=== PATIENT | male | born 1995 | race Two or more races ===

== ENCOUNTER 2017-08-17 20:46 | Emergency (ER) | payer OTHER ==
[2017-08-17 20:52] VITALS: BP 115/80; TEMP 99.9; O2SAT 93
--- NOTE | 2017-08-17 21:04 | EDPHY ---
H & P Stated Complaint: infected tooth/fever Time Seen by Provider: 08/17/17 21:04 HPI/ROS: HPI: This is a 21-year-old male who presents with Chief Complaint: Infected tooth and fever Location: Left lower tooth Quality: Infected Duration: 4 days Signs and Symptoms:+ felt warm this afternoon but never took temperature, no difficulty swallowing, no difficulty opening mouth, no difficulty talking, + pain with chewing, no neck stiffness, no jaw swelling Timing: Gradual onset Severity: Moderate Context: Patient has a history of tobacco use and lack of dental care presents with complaints of left lower tooth pain that is constant, moderate, nonradiating in nature. He reports that he went to the dentist today who gave him amoxicillin for which he took his 1st dose prior to arrival in the ER. When he was at the pharmacy picking up his prescription, the pharmacist notified him if he had a fever he should go to the ER for further evaluation. He reports that he walked out of the pharmacy and felt warm and then he became worried so he came to the emergency room. He is asking for pain medications for his lower left tooth pain as he did not receive any at the dentist. He has not tried any [id number] Tylenol or ibuprofen. He has eaten 3 meals today. Modifying Factors: Amoxicillin Comment: ROS: see HPI Constitutional: No fever, no chills, no weight loss Eyes: No blurred vision Respiratory: No shortness of breath, no cough Cardiovascular: No chest pain Gastrointestinal: No nausea, no vomiting, no diarrhea Genitourinary: No dysuria Extremities: No myalgias Neurologic: No weakness, no numbness Skin: No rashes Hematologic: No bruising, no bleeding MEDICAL/SURGICAL/SOCIAL HISTORY: Medical history: Generally healthy. Does not take any regular medications. Surgical history: Denies Social history: Student CONSTITUTIONAL: awake and alert, no obvious distress HEENT: Atraumatic and normocephalic, PERRL, EOMI. Tympanic membranes clear. Oropharynx clear, no cracked or decayed teeth. Mild left mandible jaw swelling ; no erythema/fluctuance appreciated. no exudate and moist pink mucosa. No malocclusion. Airway patent. No lymphadenopathy. No meningismus. Cardiovascular: Normal S1/S2, tachycardia, regular rhythm, without murmur rub or gallop. PULMONARY/CHEST: Symmetrical and nontender. Clear to auscultation bilaterally. Good air movement. No accessory muscle usage. ABDOMEN: Soft, nondistended, nontender, no rebound, no guarding, no peritoneal signs, no masses or organomegaly. No CVAT. EXTREMITIES: 2/2 pulses, no deformities, no clubbing, no cyanosis or edema. NEUROLOGICAL: no focal neuro deficits. GCS 15. SKIN: Warm and dry, no erythema. no rash. Good capillary refill. Source: Patient Exam Limitations: No limitations - Personal History Current Tetanus/Diphtheria Vaccine: Unsure - Medical/Surgical History Hx Asthma: No Hx Chronic Respiratory Disease: No Hx Diabetes: No Hx Cardiac Disease: No Hx Renal Disease: No Hx Cirrhosis: No Hx Alcoholism: No Hx HIV/AIDS: No Hx Splenectomy or Spleen Trauma: No Other PMH: PSHx: denies. PMHx: denies - Social History Smoking Status: Current every day smoker Constitutional: Initial Vital Signs Temperature (C) 37.7 C 08/17/17 20:48 Heart Rate 120 H 08/17/17 20:48 Respiratory Rate 14 08/17/17 20:48 Blood Pressure 115/80 08/17/17 20:48 O2 Sat (%) 93 08/17/17 20:48 O2 Delivery Mode Room Air Allergies/Adverse Reactions: No Known Allergies Allergy (Unverified 08/17/17 20:47) Home Medications: Medication Instructions Recorded AMOXICILLIN 08/17/17 Tramadol HCl/Acetaminophen 1 each PO Q6 PRN #10 tablet 08/17/17 [Ultracet 37.5/325 mg] Medical Decision Making ED Course/Re-evaluation: Given clindamycin, Temple, ibuprofen with moderate relief of pain Mild left lower jaw swelling appreciated. No fluctuance to I and D Patient politely declined dental block. Patient already has a follow-up appointment with dentist in 10 days as well as script for amoxicillin times 10 days Advised to stop smoking, rinse mouth after meals and at bedtime, take all antibiotics as directed, given limited number of Ultracet for severe breakthrough pain. Differential Diagnosis: ED differential diagnosis includes dental cavity, periapical abscess, facial cellulitis. Departure - Departure Disposition: Home, Routine, Self-Care Clinical Impression: Pain, dental, Dental abscess Condition: Good Instructions: Dental Abscess (ED) Additional Instructions: Please take all antibiotics as directed. Stop smoking. Rinse mouth with salt water after every meal and at bedtime. Take ibuprofen or Tylenol as needed for fever or pain. Apply warm compress to left side of jaw to reduce pain and swelling. Take Ultracet every 6 hours as needed for severe/breakthrough pain. Keep your follow-up appointment with dentist as directed. Referrals: [facility],. [Clinic] - As per Instructions Prescriptions: Tramadol HCl/Acetaminophen [Ultracet 37.5/325 mg] 1 each PO Q6 PRN #10 tablet PRN Reason: Pain, Severe
[2017-08-17] MEDS ORDERED: HYDROCODONE/APAP 5/325 TAB PO ONE (21:09)
[2017-08-17] MEDS ORDERED: CLINDAMYCIN 150 MG CAP PO ONE (21:10)
[2017-08-17] MEDS ORDERED: IBUPROFEN 800 MG TAB PO ONE (21:10)
[2017-08-17 21:38] VITALS: PULSE 100; RESP 18
== END 2017-08-17 21:36 | disposition home or self-care (01) ==
DX: K04.7 Periapical abscess without sinus (principal); F17.200 Nicotine dependence, unspecified, uncomplicated

== ENCOUNTER 2017-09-08 12:02 | Inpatient (IN) | payer OTHER ==
--- NOTE | 2017-09-08 12:34 | EDPHY ---
H & P Stated Complaint: M1 - Personal History Current Tetanus Diphtheria and Acellular Pertussis (TDAP): Unsure - Medical/Surgical History Hx Asthma: No Hx Chronic Respiratory Disease: No Hx Diabetes: No Hx Cardiac Disease: No Hx Renal Disease: No Hx Cirrhosis: No Hx Alcoholism: No Hx HIV/AIDS: No Hx Splenectomy or Spleen Trauma: No Other PMH: PSHx: denies. PMHx: denies - Social History Smoking Status: Current every day smoker Time Seen by Provider: 09/08/17 12:17 HPI/ROS: CHIEF COMPLAINT: Suicidal ideation HISTORY OF PRESENT ILLNESS: 21-year-old male arrives via police complaining of suicidal ideation. History of depression, discontinued from Wellbutrin 2 weeks ago and transition to Prozac. He he notes increasing suicidal ideation with plan to jump in front of a vehicle or go to a shooting range and shoot himself. He denies suicide attempt. Denies homicidal ideation. Denies physical complaints of pain or discomfort. Denies hallucination. REVIEW OF SYSTEMS: A ten point review of systems was performed and is negative with the exception of the items mentioned in the HPI PAST MEDICAL & SURGICAL HISTORY: Depression SOCIAL HISTORY:no alcohol or drug use PHYSICAL EXAM (Prior to examination, patient consented to physical exam, hands were washed and my usual and customary physical exam procedures followed) 1) GENERAL: Well-developed, well-nourished, alert and oriented. Appears to be in no acute distress. 2) HEAD: Normocephalic, atraumatic 3) HEENT: Pupils equal, round, reactive to light bilaterally. Sclera anicteric. 4) NECK: Full range of motion, no meningeal signs. 5) LUNGS: Clear auscultation bilaterally, no wheezes, no rhonchi, no retractions. 6) HEART: Regular rate and rhythm, no murmur, no heave, no gallop. 7) ABDOMEN: No guarding, no rebound, no focal tenderness, negative McBurney's, negative Gil's, negative Rovsing's, negative peritoneal sign, 8) MUSCULOSKELETAL: Moving all extremities, no focal areas of tenderness, no obvious trauma. No peripheral edema or discoloration. 9) BACK: No CVA tenderness, no midline vertebral tenderness, no fluctuance, no step-off, no obvious trauma, no visual or palpable abnormality. 10) SKIN: No rash, no petechiae. 11) Psychiatric: Patient is oriented X 3, there is no agitation. DIFFERENTIAL DIAGNOSIS: [ in no particular order including but not limited to depression, suicidal ideation, homicidal ideation (Ariel Beckett) Constitutional: Initial Vital Signs Temperature (C) 37 C 09/08/17 12:10 Heart Rate 105 H 09/08/17 12:10 Respiratory Rate 12 09/08/17 12:10 Blood Pressure 134/63 H 09/08/17 12:10 O2 Sat (%) 95 09/08/17 12:10 O2 Delivery Mode Room Air Allergies/Adverse Reactions: No Known Allergies Allergy (Unverified 08/17/17 20:47) Home Medications: Medication Instructions Recorded FLUoxetine [Prozac 20 MG (*)] 20 mg PO DAILY 09/08/17 Medical Decision Making ED Course/Re-evaluation: 12:34 p.m.:Care of patient under supervision of secondary supervising physician Dr Momin . Will obtain diagnostic studies and contact mental health provider. 5:00 p.m.: Care turned over to Dr. Rudy Tiwari, awaiting psychiatric evaluation. (Ariel Beckett) The patient was evaluated and managed by the physician phlebotomist lab assistant. I have reviewed this chart and I agree with the findings and plan of care as documented , as indicated by my signature. I am the secondary supervising physician. ( Rachael Momin) Other Provider: The patient has been accepted at [address] [place] [address] Tadeo. Transfer paperwork completed. (Rudy Tiwari) - Data Points Laboratory Results: Laboratory Results 09/08/17 12:35 09/08/17 12:35 Departure - Departure Disposition: [facility] IP Clinical Impression: Suicidal ideation Condition: Fair
[2017-09-08 12:42] LABS: % IMMATURE GRANULYOCYTES 0.1 % (0.0-1.1); ABSOLUTE IMMATURE GRANULOCYTES 0.01 10^3/uL (0.00-0.10); ADD DIFF? NO; ADD MORPH? NO; ADD SCAN? NO; ATYPICAL LYMPHOCYTE FLAG 0 (0-99); FRAGMENT RBC FLAG 0 (0-99); HEMATOCRIT 49.4 % (40.0-51.0); HEMOGLOBIN 17.7 g/dL (13.7-17.5); LEFT SHIFT FLG 0 (0-99); LIPEMIA HEMOLYSIS FLAG 90 (0-99); MEAN CELL HEMOGLOBIN 28.7 pg (27.9-34.1); MEAN CELL HEMOGLOBIN CONCENTR. 35.8 g/dL (32.4-36.7); MEAN CELL VOLUME 80.1 fL (81.5-99.8); MEAN PLATELET VOLUME 9.6 fL (8.7-11.7); PLATELET CLUMPS FLAG 10 (0-99); PLATELET COUNT 252 10^3/uL (150-400); RED BLOOD CELL COUNT 6.17 10^6/uL (4.40-6.38); RED CELL DISTRIBUTION WIDTH 11.3 % (11.5-15.2)
[2017-09-08 12:58] LABS: ANION GAP 19 mEq/L (8-16); CALCIUM 9.8 mg/dL (8.5-10.4); CARBON DIOXIDE 22 mEq/l (22-31); CHLORIDE 99 mEq/L (97-110); CREATININE 0.9 mg/dL (0.7-1.3); ETHANOL SERUM < 10 mg/dL (0-10); GLOMERULAR FILTRATION RATE > 60; GLUCOSE 73 mg/dL (70-100); POTASSIUM 3.9 mEq/L (3.5-5.2); SODIUM 140 mEq/L (134-144)
[2017-09-08] MEDS ORDERED: MAGNESIUM HYDROXIDE 30 ML UDCUP PO PRN (21:24)
[2017-09-08] MEDS ORDERED: LORazepam 0.5 MG TAB PO PRN (21:24)
[2017-09-08] MEDS ORDERED: MAG HYDROX/AL HYDROX/SIMETH 30 ML UDCUP PO PRN (21:24)
[2017-09-08] MEDS ORDERED: ACETAMINOPHEN 325 MG TAB PO PRN (21:24)
[2017-09-08] MEDS ORDERED: MELATONIN 3 MG TAB PO PRN (21:26)
[2017-09-09 06:17] VITALS: RESP 14
[2017-09-09] MEDS: FLUoxetine 20 MG CAP PO SCH (09:14)
--- NOTE | 2017-09-09 15:37 | BAPA ---
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 He has been seeing a therapist through the [facility] at and a psychiatric prescriber at [facility]. The patient has been taking medications fo r about a total of a month, but does not feel like medications are helping and wonders if anything if it is making him feel worse. The patient has never been prescribed medications or received any kind of behavioral health treatment in the past. He started seeing a therapist through the [facility] program, which is free psychological services for s tukristen, about 2 months ago. He said due to significant stressors, including that his school work wa s becoming overwhelming and his grades were falling. He said that he has been missing his family in [facility] and about 1 month ago he had a breakup with his girlfriend after an argument, but he say s that they are still friends, but the relationship feels "weird" to him. After seeing his therapist for about a month, the therapist suggested that the patient might benefit from being on medications so she referred him to a prescriber at [facility]. Initially the patient w as started on Wellbutrin which he took for about 3 weeks, but says that he did not really feel like i t helped him very much and so about a week ago he was switched to Prozac. He has been taking 20 mg o f Prozac for about the last week. Says that he does not really feel much different than when he was taking the Wellbutrin. He said that he and his therapist have been talking about his suicidal though ts. He said he has had the suicidal thoughts for about the last 4 months but he says that they come and then they go. He says that when he has them they last for a few hours, never more than a full da y and he says that they will go away and he will not think about suicide at all for up to a week and then thoughts will come back, but then go away again. He says that he has at no time ever had the in tent on acting on his suicidal thoughts, even though he has imagined ways of killing himself. He told his therapist this week on Thursday that he had thoughts about walking in front of a bus and th at he also had thoughts about shooting himself, but he does not own a gun and he said that he would n ever "do those things to myself" for several reasons. 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 He says, "I kn ow that they'll get better." The patient says that he did go home between freshman year and sophomore year to be with his family i [facility]. He says that he has a close-knit family and that they are his main social and emotio nal support system although he did he does have a few close friends here in the [facility]. He is living with 2 other [place] roommates and says that he is close to them and that they are a good suppo rt system for him. The patient says that they are aware of his depression and suicidal thoughts and that they are supportive. The patient says that he thinks the breakup with his girlfriend may have a ffected him more than he realized at . He denies ever having thoughts about wanting to hurt anybo dy else. The patient says that he is not sure why he got placed on a mental health hold, that he was expecting to come voluntarily to the hospital and that according to the hold his outpatient therapist said that the patient was unable to contract for safety, but patient says that is not true and that he was not in any imminent danger. He did not have the intent or the plan to do any of the things that he h ad thought about in order to hurt himself. PAST PSYCHIATRIC HISTORY: Patient denies any prior psychiatric history before this sophomore year at . He has had no history of counseling when he was younger. He has never been on any medications for mood. He only started seeing a therapist 2 months ago through the [facility] program at when stress ors at school and missing his family became more acute. He says the only time he has taken medication was during the last month or so when he has been prescribed Wellbutrin and is now taking Prozac. He has no prior history of suicide attempts. He has no prior history of psychosis or alejandro. He has ne yi been in a psychiatric inpatient hospital before. MEDICATIONS: Currently patient is taking Prozac 20 mg daily. He says he was supposed to increase it to 40 mg next week. He has a followup appointment with his outpatient prescriber on Thursday the and he says that he sees his therapist once a week or every other week, but says that his therapist is out of town for [place] and that his next scheduled appointment is the week after Stanley kuo ALLERGIES: The patient has no known drug allergies. PREVIOUS MEDICAL HISTORY: The patient denies any medical conditions. He has never been on any presc ription medications other than the psychiatric medications that he takes now. He says that he had an accident when he was younger where he got cut by some glass and that he had to have sutures but he h as never had any surgeries. SOCIAL HISTORY: The patient is a [place] national. All of his family live in [place]. He says t hat he lives in an apartment with 2 roommates who are both also from [place]. He says that they are his closest social support. He had a girlfriend that he was dating up until about a month ago a nd says that they broke up after an argument, but that he still tries to be friends with her, but say s that that relationship is "weird" after their break-up. 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 He says that he has been having difficulty maintaining his grades. He says that the amount of course work has gotten overwhe lming for him and his grades have suffered, but he is hoping to catch up. But he withdrew from [employer], that has lightened his load for this semester and he hopes that if he applies himself for the rest of the semester he will be able to bring his grades back up. He says that he is looking fo rward to going home over the winter holiday to spend time with his family which he enjoys very much. SUBSTANCE USE: Patient admits that he smokes marijuana 2-3 times a week and has been doing so since he came to [employer] a year and a half ago. He says that he never smoked marijuana before and never used any other recreational drugs. He did not use any alcohol or drugs when he lived in [facility]. He says that he did start drinking when he came to , but he says that he has only ever tried al cohol on a couple of occasions. He says that the taste does not agree with him and that he does not like it. FAMILY PSYCHIATRIC HISTORY: The patient denied any history of mental illness in his family. He also denied any history of substance use in his family either. LEGAL ISSUES: The patient has no legal issues. CAODAISM/SPIRITUAL: Patient identifies as a Zoroastrian. LABORATORY DATA: Were done in the emergency department on admission. White cell count was 7.41, hem oglobin was 17.7, hematocrit was 49.4, platelet count was 252. Sodium was 140, potassium 3.9, chlori de 99, BUN was 18, creatinine was 0.9, glucose was 73, calcium was 9.8. His urine tox screen was positive for marijuana, negative for all other drugs of abuse. Blood alcoho l level was less than 10. MENTAL STATUS EXAMINATION: This is a well-developed, thin, appropriately groomed [place] national male wearing a sweatshirt. He has blond tips of his hair which is otherwise dark. He is appropriat geovanni groomed. He interacts, he is easily engaged in conversation. His speech is fluent and spontaneo us. His affect is euthymic and he has a normal range of affect. He makes good eye contact. His tho ught process is linear and goal directed. He says that his mood is "good." His thought content reve als no evidence of psychosis. He denies feeling depressed currently. He denies any thoughts of suic daryl. He has no intent or plans at this time to harm himself or anyone else. He states "I would neve r do it (suicide)." He is alert and oriented x4. His intellect appears to be above average based on his educational and occupational history, fund of knowledge and vocabulary. His insight and judgmen t are both fair. IMPRESSION AND DIAGNOSES: 1. Major depressive disorder, recurrent, severe. 2. Cannabis use disorder, severe. 3. Psychosocial stressors include academic stress, falling grades, recent break up with his girlfrie nd, missing his family, homesickness because his family lives in another country. PLAN: 1. Admit patient to the inpatient Behavioral Health Services Unit on an M1 hold. 2. Monitor closely for safety and suicide precautions. 3. Will continue the patient's regular outpatient medication Prozac 20 mg. I do think it is reasona ble for the patient to increase the dose, but since he has only been on it for a week I told the marissa ent that it is too early to decide whether or not a dosage increase is necessary. I explained to the patient that it takes anywhere from 4-8 weeks for SSRIs to become fully effective. He said that he understands that and he has a followup appointment with his prescriber on Thursday and he will discuss with her the options about dosage adjustment. He would also like to continue in outpatient therapy. He says that that has been helpful for dealing with stressors in his life. 4. MD did discuss the risks, benefits and side effects of ingesting cannabis and particularly its po tential adverse effects on things like mood, judgment, cognition, impulsivity. Given the fact that t he patient is struggling in school and that he is having low mood and intermittent SI, using mood alt ering substances like cannabis, alcohol or any other recreational drugs that have an effect on his mo od would be contraindicated. Patient said that he understood. 5. Estimated length of stay is 1-2 days. 6. coordinator mining products is going to arrange followup appointments for the patient with his [facility] amanda ron. The patient will likely be discharged tomorrow before the expiration of his M1 hold. /[id number]/MODL
--- NOTE | 2017-09-09 22:18 | BCON ---
[f rep st] BEHAVIORAL HEALTH CONSULTATION DATE OF CONSULTATION: 09/09/2017 REFERRING PHYSICIAN: Rasta Tadeo MD REASON FOR REFERRAL: Medical clearance for inpatient behavioral health stay. HISTORY OF PRESENT ILLNESS: This patient came to the emergency department yesterday, brought in by police, complaining of suicidal ideation. He had a history of depression. He had recently discontinued bupropion and was transitioned to fluoxetine. He was evaluated by the mental health team and admitted for further psychiatric care. He is currently without any acute complaints. PAST MEDICAL HISTORY: Dental abscess, treated with antibiotics approximately a month ago, and he reports he has not been able to get to a dentist since then. PAST SURGICAL HISTORY: He denies any history of surgeries. MEDICATIONS: He was taking fluoxetine. 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 He is from [place]. He lives with several roommates. He smokes approximately 3 cigarettes a week, and he uses marijuana. FAMILY HISTORY: Noncontributory. REVIEW OF SYSTEMS: He no longer has any dental pain. Otherwise, a 10-point review of systems was negative. PHYSICAL EXAMINATION: VITALS: Blood pressure 111/66, heart rate 61, respiratory rate 14, oxygen saturation 96% on room air, temperature 36.7 degrees centigrade. His weight is 65 kg for a body mass index of 22.4. GENERAL : This is a well-nourished, well-developed man, appears his chronologic age, cooperative, and in no acute distress. HEENT: Extraocular movements are intact. Pupils are equal, round, and reactive to light. Mucous membranes are moist. Dentition is in good condition. There is no tenderness over the left mandible where the abscess was. NECK: Supple. HEART: Regular rate and rhythm with no murmurs, rubs, or gallops. LUNGS: Clear to auscultation bilaterally. ABDOMEN: Soft, nontender, nondistended, with normoactive bowel sounds. EXTREMITIES: There is no cyanosis, clubbing, or edema. NEUROLOGIC: He is alert and oriented x3. Cranial nerves 2-12 are grossly intact. There is no focal weakness, and sensation is intact to light touch. LABORATORY STUDIES: Drawn in the emergency department, CBC showed mild hemoconcentration with a hemoglobin of 17.7. His MCV was low at 80.1. White blood cell count was normal, but there was a relative predominance of neutrophils. Serum chemistry revealed a slightly high anion gap at 19. Otherwise, renal function and electrolytes were within normal limits. Toxicology screen in the serum was negative for ethyl alcohol, and the urine was non-negative for marijuana but negative for other substances of abuse. ASSESSMENT AND RECOMMENDATIONS: 1. Mental health issues, pending further evaluation and management per Psychiatry and the mental health team. 2. Tobacco abuse. He was encouraged to stop smoking, as there is no safe lower dose known. 3. Dental abscess, resolved. He should be referred to a dentist for better mouth care after his discharge. I see no medical contraindications to this patient's continued stay on the inpatient behavioral health unit or to any psychiatric medications or procedures. Thank you very much for including me in the care of this patient, and please do not hesitate to contact me or the hospitalist service should there be need for further medical evaluation. /[id number]/MODL MTDD
[2017-09-10 06:50] VITALS: BP 111/65; PULSE 76; TEMP 97.6; O2SAT 97
[2017-09-10] MEDS: FLUoxetine 20 MG CAP PO SCH (08:59)
--- NOTE | 2017-09-10 19:39 | BDS ---
[f rep st] BEHAVIORAL HEALTH DISCHARGE SUMMARY ADMITTING DIAGNOSES: 1. Major depressive disorder, recurrent, severe. 2. Cannabis use disorder, severe. 3. Psychosocial stressors include academic stress falling grades, recent break up with girlfriend, luke issing his family. DISCHARGE DIAGNOSES ARE FOLLOWS: 1. Major depressive disorder, recurrent, severe. 2. Cannabis use disorder, severe. 3. Psychosocial stressors include academic, family and relationship. 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 HOSPITAL COURSE: The patient was evaluated by this MD on 09/09/2017. At that time, the patient admi tted that he has occasional thoughts of suicide over the past 4 months. He says that when these thou ghts occur, they usually last for a couple of hours, never for more than a day and that he will go wi thout having these thoughts for up to a couple of weeks at a time. 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 He also states that he feels like the problems that he is having now "will pass in time," and the patient believes that the way he feels now is not a permanent condition and that it will resolve. So he is both optimistic ab out the future and is also forward looking. The patient has no psychiatric history. Prior to coming to college he had been seeing an outpatient therapist through the [facility] at [facility] for the last 2 months. He has been taking medication prescribed by a physician at [facility] about 1 month, initially it was Wellbutrin and then it was switched to Prozac. He has been taking Prozac 20 mg for about the last week. He says that therapy is helpful but he is still waiting for th e medication to "kick in." The patient was maintained on his current dose of Prozac since he has only been on it for 1 week. It is not appropriate to adjust the dose at this time. Patient understands that it will take several weeks for the medication to become fully effective. The patient acknowledg ed that he is dealing with multiple stressors that are challenging him right now, including feeling o verwhelmed by his academic course work and having falling grades as a result. He says that he also br nicki up with his girlfriend about a month ago and that break up has been harder to deal with than he i nitially thought it would be. He says that he has a limited group of social support here, because hi s family all live in [place]. But he does live with 2 roommates who are also from [place] and he says that they are his closest social support at the current time. He says that therapy has b een helping him deal with home sickness and the other stressors that he is pacing related to school a nd relationship break up and he wants to continue seeing his individual therapist on campus. Patient denied having any thoughts, plans or intents to hurt himself or anyone else and reiterated the fact that even though he has had suicidal thoughts infrequently over the last 4 months that he "would neve r do anything" to act on them. The patient was discharged before the end of his mental health hold ause he had a good outpatient followup plan of care. He was going to return to see his providers tanvir nuñez the next 7 days and he also had a correctional casework specialist assigned to him through [facility] and the patient states that he is going to stay with his roommates, and that they were going to be t ogether over the holidays so he will have social support. He said he is also in contact with his fam felisa in [place] [facility] and is looking forward to going and visiting them over . PHYSICAL EXAMINATION: Please see Dr. Balbuena's H and P done on admission for pertinent medical histor y as well as physical exam. MEDICATIONS: The patient was taking 20 mg of Prozac p.o. daily. ALLERGIES: No known drug allergies. LABS: That were done on admission in the ED were unremarkable. White cell count was 7.4, hemoglobin was 17.7, hematocrit was 49.4, platelet count was 252. Sodium was 140, potassium 3.9, chloride 99, creatinine 0.9, glucose 73, urine tox screen was positive for marijuana. Negative for all other drug s of abuse. DISCHARGE MEDICATIONS: Prozac 20 mg p.o. daily. Resume outpatient regimen. CONDITION UPON DISCHARGE: Stable. The patient reports his mood is "good." FOLLOWUP: The patient has an appointment with his outpatient prescriber, Beartiz Moreno on 2016 at 4:00 p.m. He has an appointment on 09/16/2017 at [facility] with a case manage r, and he is seeing his outpatient therapist, Afia Blackmon, on 09/22/2017. /[id number]/[id number]
== END 2017-09-10 15:50 | disposition home or self-care (01) | DRG 885 ==
LOC: BBEH 18:05
PROVIDERS: ADMIT Psychiatry & Neurology Psychiatry; ATTEND Psychiatry & Neurology Psychiatry
DX: F33.2 Major depressive disorder, recurrent severe without psychotic features (principal); F12.20 Cannabis dependence, uncomplicated; F43.9 Reaction to severe stress, unspecified
CPT/HCPCS: 80305; G0480